=== PATIENT | male | born 1985 | race Caucasian/White ===

== ENCOUNTER → 2017-11-05 | Outpatient (CLI) | payer OTHER | LOC: CFH 09:16 | PROVIDERS: ATTEND Orthopaedic Surgery | DX: M41.86 Other forms of scoliosis, lumbar region (principal); M47.816 Spondylosis without myelopathy or radiculopathy, lumbar region | CPT/HCPCS: 72110 ==

== ENCOUNTER 2017-12-21 22:49 | Inpatient (IN) | payer OTHER ==
[~2017-12-21] VITALS: Ht 190.5 cm; Wt 161.7 kg
[~2017-12-21 22:49] MED LIST: CEPH-376 PO; CEPH750C9 PO; HYDR-3237 PO; METH750T2 PO
[2017-12-21] MEDS ORDERED: SODIUM CHLORIDE 0.9% 1,000 ML IV ONE (23:37)
[2017-12-21] MEDS ORDERED: MORPHINE SULFATE 4 MG/ML, 1ML ONE (23:43)
[2017-12-21] MEDS ORDERED: ONDANSETRON 2MG/ML, 2ML ONE (23:43)
[2017-12-22] MEDS ORDERED: SODIUM CHLORIDE FLUSH 10ML SYR IVF ONE
[2017-12-22] MEDS ORDERED: ONDANSETRON 2MG/ML, 2ML IVPush ONE
[2017-12-22] MEDS ORDERED: SODIUM CHLORIDE 0.9% 1,000ML IVBOLUS ONE
[2017-12-22] MEDS: MORPHINE SULFATE 4 MG/ML, 1ML IVPush PRN ×2 (00:19→11:08)
[2017-12-22] MEDS ORDERED: SODIUM CHLORIDE 0.9% 1,000 ML IV ONE (01:31)
[2017-12-22] MEDS ORDERED: SODIUM CHLORIDE FLUSH 10ML SYR IVF PRN (02:00)
[2017-12-22] MEDS ORDERED: MORPHINE SULFATE 4 MG/ML, 1ML IVPush PRN (02:00)
[2017-12-22] MEDS ORDERED: ONDANSETRON 2MG/ML, 2ML IVPush PRN ×3 (02:00→13:00)
[2017-12-22 02:30] VITALS: BP 127/78
[2017-12-22 02:37] VITALS: BP 122/78
[2017-12-22 06:27] VITALS: BP 120/80
[2017-12-22] MEDS ORDERED: OXYcodone/APAP 5/325MG TABLET PO PRN (08:30)
[2017-12-22] MEDS ORDERED: BUTALB/APAP/CAFFEINE 50MG/325MG/40MG PO PRN (08:30)
[2017-12-22] MEDS ORDERED: THROMBIN 5,000 UNIT VIAL TP ONE (10:06)
[2017-12-22] MEDS ORDERED: BUPIVACAINE/PF 0.5% ONE (10:06)
[2017-12-22] MEDS ORDERED: EPINEPHRINE 1 MG/ML, 1ML ONE (10:06)
[2017-12-22] MEDS ORDERED: BACITRACIN 50,000 UNIT ONE (10:06)
[2017-12-22] MEDS ORDERED: LIDOCAINE GEL 2%, 5ML ONE (10:44)
[2017-12-22] MEDS ORDERED: ONDANSETRON 2MG/ML, 2ML ONE (10:45)
[2017-12-22] MEDS ORDERED: CEFAZOLIN 1,000 MG ONE ×3 (10:45→12:06)
[2017-12-22] MEDS ORDERED: DEXAMETHASONE 4 MG/ML, 1ML ONE (10:45)
[2017-12-22] MEDS ORDERED: SUCCINYLCHOLINE 20 MG/ML, 10ML ONE (10:45)
[2017-12-22] MEDS ORDERED: PROPOFOL 10 MG/ML, 20ML ONE ×2 (10:45→10:54)
[2017-12-22] MEDS ORDERED: FENTANYL PF 250 MCG/5ML ONE (10:46)
[2017-12-22] MEDS ORDERED: MIDAZOLAM 1 MG/ML, 2ML ONE (10:46)
[2017-12-22] MEDS ORDERED: ROCURONIUM 10MG/ML,5ML ONE (10:54)
[2017-12-22] MEDS ORDERED: VANCOMYCIN 500 MG ONE (11:52)
[2017-12-22] MEDS ORDERED: BUPIVACAINE/PF-EPI 0.5% 1:200K INFIL ONE (11:54)
[2017-12-22] MEDS ORDERED: ALBUTEROL/IPRATROPIUM 2.5MG/0.5MG, 3 ML NPPB PRN (12:00)
[2017-12-22] MEDS ORDERED: MEPERIDINE/PF 25MG/0.5ML IVPush PRN (12:00)
[2017-12-22] MEDS ORDERED: PROMETHAZINE 25 MG/ML, 1ML IV PRN (12:00)
[2017-12-22] MEDS ORDERED: METOCLOPRAMIDE 5 MG/ML, 2ML IV PRN (12:00)
[2017-12-22] MEDS ORDERED: MIDAZOLAM 1 MG/ML, 2ML IV PRN (12:00)
[2017-12-22] MEDS ORDERED: LORazepam 2 MG/ML, 1ML IVPush PRN (12:00)
[2017-12-22] MEDS ORDERED: hydrALAzine 20 MG/ML, 1ML IV PRN (12:00)
[2017-12-22] MEDS ORDERED: HYDROmorphone 1 MG/ML, 1ML IV PRN (12:00)
[2017-12-22] MEDS ORDERED: ACETAMINOPHEN 325 MG TABLET PO PRN (12:00)
[2017-12-22] MEDS ORDERED: LABETALOL 5MG/ML, 20ML IV PRN (12:00)
[2017-12-22] MEDS ORDERED: DIAZEPAM 5 MG/ML, 2ML IVPush PRN (12:00)
[2017-12-22] MEDS ORDERED: FENTANYL PF 100 MCG/2ML ONE ×2 (12:18→13:10)
[2017-12-22] MEDS ORDERED: OXYcodone 5 MG/5 ML ORAL.SOL UDC ONE ×2 (12:56→13:10)
[2017-12-22] MEDS: OXYcodone 5 MG/5 ML ORAL.SOL UDC PO PRN ×2 (12:57→13:15)
[2017-12-22] MEDS ORDERED: DIPHENHYDRAMINE 50 MG CAPSULE PO PRN (13:00)
[2017-12-22] MEDS ORDERED: BISACODYL 10 MG SUPP PR PRN (13:00)
[2017-12-22] MEDS ORDERED: MAGNESIUM HYDROXIDE 8%, 30ML UDC PO PRN (13:00)
[2017-12-22] MEDS ORDERED: LABETALOL 5MG/ML, 20ML IVPush PRN (13:00)
[2017-12-22] MEDS: CEFAZOLIN PMX 1GM/50ML 50 ML IVPB SCH ×2 (13:00→21:01)
[2017-12-22] MEDS ORDERED: PHARMACY MAY ADJ FOR RENAL FX MC PRN (13:00)
[2017-12-22] MEDS ORDERED: PROMETHAZINE 25 MG/ML, 1ML IM PRN (13:00)
[2017-12-22] MEDS: FENTANYL PF 100 MCG/2ML IV PRN ×2 (13:12→13:26)
[2017-12-22 14:00] VITALS: BP 136/70
[2017-12-22] MEDS: NS + 20MEQ KCL 1,000 ML IV SCH (16:06)
[2017-12-22 20:09] VITALS: BP 136/70
[2017-12-22] MEDS: SENNA/DOCUSATE TABLET PO PRN (21:18)
[2017-12-23] VITALS: BP 116/56
[2017-12-23] MEDS: NS + 20MEQ KCL 1,000 ML IV SCH ×3 (00:22→20:55)
[2017-12-23 04:31] VITALS: BP 122/61
[2017-12-23] MEDS ORDERED: METHOCARBAMOL 750 MG TABLET ONE (04:39)
[2017-12-23] MEDS ORDERED: CEFAZOLIN PMX 1GM/50ML 50 ML IV ONE (05:00)
[2017-12-23 05:12] LABS: BASOPHILS # (AUTO) 0.01 x10^3/uL (0-0.1); BASOPHILS % (AUTO) 0 % (0-1); EOSINOPHILS # (AUTO) 0.01 x10^3/uL (0-0.4); EOSINOPHILS % (AUTO) 0 % (1-7); LYMPHOCYTES # (AUTO) 1.12 x10^3/uL (1-3.4); LYMPHOCYTES % (AUTO) 8 % (22-44); MD NO; MEAN CORPUSCULAR HEMOGLOBIN 31.8 pg (27.5-34.5); MEAN CORPUSCULAR HGB CONC 34.6 g/dL (33.2-36.2); MEAN PLATELET VOLUME 8.6 fL (7.4-10.4); MONOCYTES # (AUTO) 0.75 x10^3/uL (0.2-0.8); MONOCYTES % (AUTO) 6 % (2-9); NEUTROPHILS # (AUTO) 11.78 x10^3/uL (1.8-6.8); NEUTROPHILS % (AUTO) 86 % (42-75); PLATELET COUNT 309 x10^3/uL (130-400); RED BLOOD COUNT 4.42 x10^6/uL (4.38-5.82); RED CELL DISTRIBUTION WIDTH 12.1 % (9.4-14.8)
[2017-12-23 05:27] LABS: CALCIUM 8.5 mg/dL (8.5-10.1); CHLORIDE 107 mmol/L (98-107)
[2017-12-23 05:30] LABS: ALBUMIN 2.7 g/dL (3.4-5.0); ANION GAP 8 mmol/L (5-15); CREATININE 0.76 mg/dL (0.7-1.3)
[2017-12-23 06:46] VITALS: BP 119/66
[2017-12-23 13:08] VITALS: BP 114/71
[2017-12-23 19:46] VITALS: BP 120/63
[2017-12-23] MEDS: SENNA/DOCUSATE TABLET PO PRN (20:55)
[2017-12-24 03:25] VITALS: BP 114/64
[2017-12-24 05:18] LABS: BASOPHILS # (AUTO) 0.09 x10^3/uL (0-0.1); BASOPHILS % (AUTO) 1 % (0-1); EOSINOPHILS # (AUTO) 0.35 x10^3/uL (0-0.4); EOSINOPHILS % (AUTO) 3 % (1-7); LYMPHOCYTES # (AUTO) 3.16 x10^3/uL (1-3.4); LYMPHOCYTES % (AUTO) 27 % (22-44); MD NO; MEAN CORPUSCULAR HEMOGLOBIN 31.5 pg (27.5-34.5); MEAN CORPUSCULAR HGB CONC 34.2 g/dL (33.2-36.2); MEAN CORPUSCULAR VOLUME 92.3 fL (81-97); MEAN PLATELET VOLUME 8.4 fL (7.4-10.4); MONOCYTES # (AUTO) 0.77 x10^3/uL (0.2-0.8); MONOCYTES % (AUTO) 7 % (2-9); NEUTROPHILS # (AUTO) 7.57 x10^3/uL (1.8-6.8); NEUTROPHILS % (AUTO) 63 % (42-75); PLATELET COUNT 294 x10^3/uL (130-400); RED BLOOD COUNT 4.48 x10^6/uL (4.38-5.82); RED CELL DISTRIBUTION WIDTH 12.2 % (9.4-14.8)
[2017-12-24] MEDS: NS + 20MEQ KCL 1,000 ML IV SCH ×2 (06:16→21:11)
[2017-12-24 06:45] VITALS: BP 124/69
[2017-12-24] MEDS: HYDROcodone/APAP 10/325 MG TABLET PO PRN ×2 (12:09→19:45)
[2017-12-24 14:02] VITALS: BP 116/71
[2017-12-24 19:48] VITALS: BP 99/67
[2017-12-24] MEDS: METHOCARBAMOL 750 MG TABLET PO SCH (21:11)
[2017-12-25 04:41] VITALS: BP 103/67
[2017-12-25] MEDS: METHOCARBAMOL 750 MG TABLET PO SCH (05:00)
[2017-12-25 05:48] LABS: BASOPHILS # (AUTO) 0.09 x10^3/uL (0-0.1); BASOPHILS % (AUTO) 1 % (0-1); EOSINOPHILS # (AUTO) 0.48 x10^3/uL (0-0.4); EOSINOPHILS % (AUTO) 4 % (1-7); LYMPHOCYTES # (AUTO) 2.75 x10^3/uL (1-3.4); LYMPHOCYTES % (AUTO) 25 % (22-44); MD NO; MEAN CORPUSCULAR HEMOGLOBIN 31.7 pg (27.5-34.5); MEAN CORPUSCULAR HGB CONC 34.5 g/dL (33.2-36.2); MEAN CORPUSCULAR VOLUME 91.9 fL (81-97); MEAN PLATELET VOLUME 8.4 fL (7.4-10.4); MONOCYTES # (AUTO) 0.86 x10^3/uL (0.2-0.8); MONOCYTES % (AUTO) 8 % (2-9); NEUTROPHILS # (AUTO) 6.81 x10^3/uL (1.8-6.8); NEUTROPHILS % (AUTO) 62 % (42-75); PLATELET COUNT 296 x10^3/uL (130-400); RED BLOOD COUNT 4.59 x10^6/uL (4.38-5.82); RED CELL DISTRIBUTION WIDTH 12.5 % (9.4-14.8)
[2017-12-25 07:13] VITALS: BP 113/74
[2017-12-25] MEDS: NS + 20MEQ KCL 1,000 ML IV SCH (08:00)
[2017-12-25] MEDS ORDERED: BISA10SU2 PR (08:41)
[2017-12-25] MEDS ORDERED: MAGN400O7 PO (08:42)
[2017-12-25] MEDS ORDERED: SENN-31 PO (08:43)
== END 2017-12-25 10:52 | disposition home or self-care (01) | DRG 29 ==
LOC: ED 23:59 → EDIP 12-22 01:31 → 4NOR 12-22 02:34 → DCLOUNGE 12-25 10:45
PROVIDERS: ADMIT Neurological Surgery; ATTEND Neurological Surgery
PROC: 0WQLXZZ Repair Lower Back, External Approach (ICD-10-PCS; 2017-12-21)
PROC: 00UT0KZ Supplement Spinal Meninges with Nonautologous Tissue Substitute, Open Approach (ICD-10-PCS; principal; 2017-12-22 10:30)
DX: G96.0 Cerebrospinal fluid leak (principal); T81.31XA Disruption of external operation (surgical) wound, not elsewhere classified, initial encounter; F17.210 Nicotine dependence, cigarettes, uncomplicated
CPT/HCPCS: 12020; 36415; 80048; 82040; 85025; 87070; 87075; 87205; 96374; J0171; J0690; J1100; J2250; J2270; J2405; J2704; J3010; J3370; J3480; J3490; C1781; J0330; J7030